=== PATIENT | female | born 1935 | race Caucasian/White ===

== ENCOUNTER 2019-10-28 16:17 | Emergency (ER) | payer MEDICARE ==
[~2019-10-28] VITALS: Ht 147.3 cm; Wt 61.1 kg
--- NOTE | 2019-10-28 16:39 | NUR ---
BIB EMS FROM HOME PT FELL BACKWARDS FROM APPROX 2 FEET AND STRUCK HEAD ON GARAGE FLOOR. DENIES LOC, +LACERATION TO OCCIPUT. 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 ER MD AT BEDSIDE, PT ASSESSMENT REVIEWED AND ORDERS REC'D. PT FAMILY AT BEDSIDE. CALL LIGHT W/I REACH.
--- NOTE | 2019-10-28 16:58 | NUR ---
PT REPORT FROM LARRY MAZARIEGOS. PT CARE TO BE ASSUMED. 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 PT FAMILY IN ROOM.
[2019-10-28] MEDS ORDERED: LIDOCAINE-MPF 1%, 5ML INFIL ONE (17:00)
[2019-10-28] MEDS ORDERED: PLEASE ENTER ALLERGIES MC SCH (17:00)
[2019-10-28] MEDS ORDERED: DIPHTHERIA-TETANUS ADULT 0.5ML IM-VACC ONE (17:00)
[2019-10-28] MEDS ORDERED: HTN PO (17:19)
[2019-10-28] MEDS ORDERED: BENA20TA54 PO (17:19)
[2019-10-28] MEDS ORDERED: CHOLESTEROL PILL (17:19)
[2019-10-28] MEDS ORDERED: ACET650S21 PO (17:19)
[2019-10-28] MEDS ORDERED: WATER PILL (17:19)
[2019-10-28 17:20] VITALS: BP 169/72
[2019-10-28] MEDS ORDERED: LIDOCAINE-MPF 1%, 5ML ONE (17:23)
[2019-10-28] MEDS ORDERED: DIPH,PERTUSS(ACELL),TET VAC/PF 0.5 ML IM-VACC ONE (17:23)
--- NOTE | 2019-10-28 17:25 | NUR ---
LIDOCAINE 1% 5ML VIAL GIVEN TO DR GALLARDO FOR ADMINISTRATION.
--- NOTE | 2019-10-28 17:30 | NUR ---
TDAP IM GIVEN PER EMAR ORDER
[2019-10-28] MEDS ORDERED: ACETAMINOPHEN 325 MG TABLET ONE (18:15)
[2019-10-28] MEDS ORDERED: ACETAMINOPHEN 325 MG TABLET PO ONE (19:00)
== END 2019-10-28 18:45 | disposition home or self-care (01) ==
LOC: ED 18:40
DX: S01.01XA Laceration without foreign body of scalp, initial encounter (principal); I10 Essential (primary) hypertension; G31.9 Degenerative disease of nervous system, unspecified; Z87.891 Personal history of nicotine dependence; W11.XXXA Fall on and from ladder, initial encounter; Y93.89 Activity, other specified; Y92.009 Unspecified place in unspecified non-institutional (private) residence as the place of occurrence of the external cause; Y99.8 Other external cause status
CPT/HCPCS: 12002; 70450; 72125; 90471; 90714; 99284

== ENCOUNTER → 2020-06-08 | Outpatient (CLI) | payer MEDICARE ==
[~2020-06-08] MED LIST: ACET650S21 PO; BENA20TA54 PO; CHOLESTEROL PILL; HTN PO; WATER PILL
== END | disposition home or self-care (01) ==
LOC: CFH 12:31
PROVIDERS: ATTEND Internal Medicine
DX: R91.8 Other nonspecific abnormal finding of lung field (principal)
CPT/HCPCS: 71250

== ENCOUNTER → 2021-06-12 | Outpatient (CLI) | payer MEDICARE | END | disposition home or self-care (01) | LOC: CFH 10:50 | PROVIDERS: ATTEND Internal Medicine | DX: R91.8 Other nonspecific abnormal finding of lung field (principal); J43.9 Emphysema, unspecified; J98.4 Other disorders of lung; J98.11 Atelectasis | CPT/HCPCS: 71250 ==